=== PATIENT | female | born 1950 ===

== ENCOUNTER 2019-08-03 13:27 | Emergency (ER) | payer MEDICARE, OTHER, SELFPAY ==
[2019-08-03] VITALS (7 sets, daily range): BP systolic 135–168; BP diastolic 71–94; PULSE 53–84; RESP 15–24; TEMP 36.7; O2SAT 93–96; BMI 28.3
--- NOTE | 2019-08-03 13:32 | W.ED.CHESTPA ---
HPI - Chest Pain General: Chief Complaint: General Medical Stated Complaint: SHOULDER PAIN/ ARM NUMBNESS Time Seen by Provider: 08/03/19 13:32 Source: patient Mode of arrival: ambulatory Limitations: no limitations History of Present Illness: HPI narrative: Patient comes in for right shoulder pain. Patient states that she had pushed mode yesterday and then had argued with her significant other. She states that they had argued most of the night and it just was very upsetting to her. Patient reports this morning she woke up and the pain was worse. Patient states that once the ambulance got there and she as she was coming into the ER she had no further pain. Patient remains pain-free at this time. Patient appears well. Review of Systems General: Reports: 10 or more systems reviewed and unremarkable except in HPI and below Card: Reports: chest pain [facility] ED PFSH: Social History Smoking and tobacco status: current every day smoker Physical Exam Const: COMMON NORMALS: no acute distress and patient oriented x3 GENERAL APPEARANCE: cooperative HENMT: COMMON NORMALS: normocephalic and Normal external nose present HEAD & SCALP: normal to inspection and normocephalic NOSE: Normal external nose present MOUTH: Normal oral and palatal mucosa present Eye: GENERAL EYE: appearance normal, both eyes and all related structures Neck/C-Spine: COMMON NORMALS: full ROM Chest: COMMONS NORMALS: normal inspection of the chest Resp: COMMON NORMALS: normal respiratory effort EFFORT & INSPECTION: Yes able to speak in complete sentences Cardio: COMMON NORMALS: regular rate and regular rhythm RATE: regular rate RHYTHM: regular rhythm GI: COMMON NORMALS: non-tender Back/Pelvis: COMMON NORMALS: thoracic and lumbar spine normal to inspection Extremity: COMMON NORMALS: normal to inspection Neuro: COMMON NORMALS: patient oriented x3 and moves all extremities Psych: COMMON NORMALS: mental status grossly normal and cooperative Skin: COMMON NORMALS: no rashes or lesions noted GENERAL SKIN EXAM: no rashes or lesions noted Course ED course: 1455 patient remains pain-free. Reviewed first troponin with her report that we can await until the second troponin for cardiac clearance. Patient reports understanding agreed to plan. Vital Signs: Vital signs: Vital Signs Temperature 98.1 F 08/03/19 13:30 Pulse Rate 69 08/03/19 17:06 Respiratory Rate 22 H 08/03/19 17:06 Blood Pressure 135/80 08/03/19 17:06 Pulse Oximetry 96 08/03/19 17:06 MDM - Chest Pain MDM Narrative: Medical decision making narrative: Patient came in for complaints of chest discomfort. Patient was pain-free on arrival to the ER. Patient states that she had become upset with her significant other which exacerbated the pain from working yesterday in the yard. Since getting away from her significant other patient felt better and had no other pain. Respirations were even lungs were clear to auscultation. Vital signs were normal. EKG showed sinus rhythm. Differential diagnosis included ACS, anxiety, costochondritis, pneumothorax. Chest x-ray was normal. Laboratory values were normal except for some mild elevation in the sodium at 146. Encourage patient to hydrate well reassured her that her cardiac enzymes were normal and that her EKG was normal. Patient felt reassured agreed to plan and recommendations for follow-up. Lab Data: Labs: Lab Results 08/03/19 08/03/19 08/03/19 Range/Units 13:50 13:50 13:50 WBC 6.0 (4.0-10.0) 10^3/ uL RBC 4.11 (4.1-5.3) 10^6/u L Hgb 12.6 (11.5-15.3) g/dL Hct 39.2 (37.0-47.0) % MCV 95.4 (81-99) fL MCH 30.7 (28.0-34.0) pg MCHC 32.1 (30.0-36.0) g/dL RDW 12.9 (12.1-15.1) % Plt Count 274 (130-400) 10^3/c mm MPV 8.9 (7.4-10.4) fL Neut % (Auto) 44.5 % Lymph % (Auto) 42.7 % [place] % (Auto) 10.2 % Eos % (Auto) 1.7 % Baso % (Auto) 0.7 % Neut # (Auto) 2.7 (1.8-7.7) 10^3/u L Lymph # (Auto) 2.6 (0.8-4.8) 10^3/u L [place] # (Auto) 0.6 (0.2-0.9) 10^3/u L Eos # (Auto) 0.1 (0.0-0.8) 10^3/u L Baso # (Auto) 0.0 (0.0-0.1) 10^3/u L Nucleated RBC % (a uto) 0 % Nucleated RBCs # 0.0 /100WBC Sodium 146 H (136-145) mmol/L Potassium 3.6 (3.5-5.1) mmol/L Chloride 106 (98-107) mmol/L Carbon Dioxide 30 H (22-29) mmol/L Anion Gap 13.6 (5-19) BUN 9 (8-23) mg/dL Creatinine 0.6 (0.5-0.9) mg/dL GFR Calculation 98.8 (90-130) mL/min Glucose 84 (65-115) mg/dL Calculated Osmolal ity 297 H (285-295) mOsm/k g Calcium 8.9 (8.5-10.5) mg/dL Total Bilirubin 0.3 (0.15-1.2) mg/dL AST 15 (0-32) U/L ALT 9 (0-33) U/L Alkaline Phosphata se 101 (35-105) IU/L Troponin T Gen 5 n g/L 14 H (0-10) ng/L Troponin T 120 Min [place] (0-10) ng/L Delta Troponin T (0-10) ABS# Total Protein 5.9 L (6.6-8.7) g/dL Albumin 3.5 (3.5-5.2) g/dL Globulin 2.4 (1.3-4.6) g/dL 08/03/19 Range/Units 15:49 WBC (4.0-10.0) 10^3/ uL RBC (4.1-5.3) 10^6/u L Hgb (11.5-15.3) g/dL Hct (37.0-47.0) % MCV (81-99) fL MCH (28.0-34.0) pg MCHC (30.0-36.0) g/dL RDW (12.1-15.1) % Plt Count (130-400) 10^3/c mm MPV (7.4-10.4) fL Neut % (Auto) % Lymph % (Auto) % [place] % (Auto) % Eos % (Auto) % Baso % (Auto) % Neut # (Auto) (1.8-7.7) 10^3/u L Lymph # (Auto) (0.8-4.8) 10^3/u L [place] # (Auto) (0.2-0.9) 10^3/u L Eos # (Auto) (0.0-0.8) 10^3/u L Baso # (Auto) (0.0-0.1) 10^3/u L Nucleated RBC % (a uto) % Nucleated RBCs # /100WBC Sodium (136-145) mmol/L Potassium (3.5-5.1) mmol/L Chloride (98-107) mmol/L Carbon Dioxide (22-29) mmol/L Anion Gap (5-19) BUN (8-23) mg/dL Creatinine (0.5-0.9) mg/dL GFR Calculation (90-130) mL/min Glucose (65-115) mg/dL Calculated Osmolal ity (285-295) mOsm/k g Calcium (8.5-10.5) mg/dL Total Bilirubin (0.15-1.2) mg/dL AST (0-32) U/L ALT (0-33) U/L Alkaline Phosphata se (35-105) IU/L Troponin T Gen 5 n g/L (0-10) ng/L Troponin T 120 Min [place] 12.98 H (0-10) ng/L Delta Troponin T -1.02 L (0-10) ABS# Total Protein (6.6-8.7) g/dL Albumin (3.5-5.2) g/dL Globulin (1.3-4.6) g/dL EKG Data^: EKG 1: Attestation: I personally reviewed and interpreted this EKG as follows: (1344, EKG notes sinus bradycardia with a rate of 56 bpm, left fascicular block is noted, no significant ST elevation is noted, no ectopy is noted.) EKG 2: Attestation: I personally reviewed and interpreted this EKG as follows: (1650, sinus rhythm with sinus arrhythmia at a rate of 72 bpm, no ST elevation, regular rhythm.) Discharge Plan Discharge Patient Disposition: Home, Self-Care Clinical Impression: Atypical chest pain Condition: Stable Prescriptions: No Action sucralfate 1 gram tablet 1 g PO QID RF: 0 pantoprazole 40 mg Tablet,Delayed Release (Dr/Ec) 40 mg PO DAILY RF: 0 Referrals: Nena Poole FNP, [place] [Primary Care Provider] - Patient Instructions: Chest Pain (ED) Activity Restrictions/Additional Instructions: Drink plenty of fluids. Activity as tolerated. Follow-up with primary care for recheck in 1 week. Return to the ER for worsening symptoms or new concerns. Coding Level of Care Code ED Terminal Make Up Operator for Yael Fwd Exam Comprehensive
--- NOTE | 2019-08-03 13:34 | ECG_ITS ---
Measurements Intervals [place] Rate: 56 P: 57 CO: 186 QRS: -58 QRSD: 127 T: 95 QT: 477 QTc: 462 SINUS BRADYCARDIA LEFT ANTERIOR FASCICULAR BLOCK [QRS AXIS <= -45, QR IN I, RS IN II] LEFT VENTRICULAR HYPERTROPHY AND ST-T CHANGE [VOLTAGE CRITERIA PLUS ST/T ABN ABNORMALITY] POSSIBLE LATERAL MYOCARDIAL INFARCTION [30 ms Q WAVE IN I/aVL/V5/V6], OF IN INDETERMINATE AGE No previous ECG available for comparison Electronically Signed On 08-03-2019 17:57:54 CDT by Meliza Miramontes M.D. [email or web address]
[2019-08-03 14:00] LABS: Basophils % 0.7 %; Eosinophils # 0.1 10^3/uL (0.0-0.8); Eosinophils % 1.7 %; Hematocrit 39.2 % (37.0-47.0); Hemoglobin 12.6 g/dL (11.5-15.3); Lymphocytes # 2.6 10^3/uL (0.8-4.8); Lymphocytes % 42.7 %; Mean Corpuscular HGB Conc 32.1 g/dL (30.0-36.0); Mean Corpuscular Hemoglobin 30.7 pg (28.0-34.0); Mean Corpuscular Volume 95.4 fL (81-99); Mean Platelet Volume 8.9 fL (7.4-10.4); Monocytes # 0.6 10^3/uL (0.2-0.9); Monocytes % 10.2 %; Neutrophils # 2.7 10^3/uL (1.8-7.7); Neutrophils % 44.5 %; Nucleated Red Blood Cells % 0 %; Platelet Count 274 10^3/cmm (130-400); Red Blood Count 4.11 10^6/uL (4.1-5.3); Red Cell Distribution Width 12.9 % (12.1-15.1)
[2019-08-03 14:08] LABS: Alanine Aminotransferase 9 U/L (0-33); Albumin Level 3.5 g/dL (3.5-5.2); Alkaline Phosphatase 101 IU/L (35-105); Anion Gap 13.6 (5-19); Aspartate Amino Transferase 15 U/L (0-32); Blood Urea Nitrogen 9 mg/dL (8-23); Calcium 8.9 mg/dL (8.5-10.5); Carbon Dioxide 30 mmol/L (22-29); Chloride 106 mmol/L (98-107); Globulin 2.4 g/dL (1.3-4.6); Glomerular Filtration Rate 98.8 mL/min (90-130); Glucose 84 mg/dL (65-115); Osmolality Calculated 297 mOsm/kg (285-295); Potassium 3.6 mmol/L (3.5-5.1); Sodium 146 mmol/L (136-145); Total Bilirubin 0.3 mg/dL (0.15-1.2); Total Protein 5.9 g/dL (6.6-8.7)
[2019-08-03 14:10] LABS: Troponin T (5th) Once 14 ng/L (0-10)
--- NOTE | 2019-08-03 16:19 | ECG_ITS ---
Measurements Intervals [place] Rate: 72 P: 53 AL: 184 QRS: -67 QRSD: 124 T: 101 QT: 417 QTc: 458 SINUS RHYTHM WITH SINUS ARRHYTHMIA LEFT ANTERIOR FASCICULAR BLOCK [QRS AXIS <= -45, QR IN I, RS IN II] LEFT VENTRICULAR HYPERTROPHY AND ST-T CHANGE [VOLTAGE CRITERIA PLUS ST/T AB ABNORMALITY] Compared to ECG 08/03/2019 13:44:29 Sinus bradycardia no longer present Myocardial infarct finding no longer present ST (T wave) deviation still present Electronically Signed On 08-04-2019 8:10:13 CDT by Meliza Miramontes M.D. [id number]
[2019-08-03 17:26] LABS: Troponin 5 2HR 12.98 ng/L (0-10)
[2019-08-03 17:36] LABS: Troponin 5 2HR Delta -1.02 ABS# (0-10)
== END 2019-08-03 18:01 | disposition home or self-care (01) ==
PROVIDERS: Emergency Provider Nurse Practitioner Family; PCP Chiropractor Orthopedic
DX: R07.89 Other chest pain (principal); F17.210 Nicotine dependence, cigarettes, uncomplicated
CPT/HCPCS: 12345; 36415; 80053; 84484; 85025; 93005; 99283